=== PATIENT | female | born 1995 | race Caucasian/White ===

== ENCOUNTER 2022-08-23 19:31 | Observation (INO) | payer MEDICAID ==
[~2022-08-23] VITALS: Ht 162.6 cm; Wt 77.1 kg
[~2022-08-23 19:31] MED LIST: LOP2C PO
[2022-08-23] MEDS ORDERED: TERBUTALINE SULFATE 1 MG/ML 1ML VIAL SC ONE (20:21)
[2022-08-23] MEDS ORDERED: LACTATED RINGER'S 1,000 ML IV ONE (20:30)
[2022-08-23] MEDS ORDERED: LACTATED RINGER'S 1,000 ML IV SCH (20:30)
[2022-08-23] MEDS: TERBUTALINE SULFATE 1 MG/ML 1ML VIAL SC SCH ×3 (20:48→21:25)
[2022-08-23] MEDS ORDERED: NIFEdipine 10 MG CAP PO ONE (21:00)
[2022-08-23] MEDS ORDERED: BETAMETHASONE ACET (30mg/5ml) 5ml Vial 6mg/ml IM ONE (21:45)
[2022-08-23] MEDS ORDERED: NIF10C PO (21:52)
== END 2022-08-23 22:57 | disposition home or self-care (01) ==
LOC: LDRP 19:31
PROVIDERS: ADMIT Obstetrics & Gynecology; ATTEND Obstetrics & Gynecology
DX: O62.9 Abnormality of forces of labor, unspecified (principal); O26.853 Spotting complicating pregnancy, third trimester; Z3A.34 34 weeks gestation of pregnancy
CPT/HCPCS: 59025; 81002; 94760; 96360; 96361; 96372; G0378; J0702; J3105

== ENCOUNTER 2022-08-24 22:10 | Observation (INO) | payer MEDICAID ==
[~2022-08-24] VITALS: Ht 162.6 cm; Wt 77.1 kg
[~2022-08-24 22:10] MED LIST changes: +NIF10C PO
[2022-08-24] MEDS ORDERED: BETAMETHASONE ACET (30mg/5ml) 5ml Vial 6mg/ml IM ONE (22:30)
== END 2022-08-24 23:23 | disposition home or self-care (01) ==
LOC: LDRP 22:10
PROVIDERS: ADMIT Obstetrics & Gynecology; ATTEND Obstetrics & Gynecology
DX: O60.03 Preterm labor without delivery, third trimester (principal); Z3A.35 35 weeks gestation of pregnancy
CPT/HCPCS: 59025; 81002; 96372; G0378

== ENCOUNTER 2022-09-06 19:46 | Observation (INO) | payer MEDICAID ==
[2022-09-06] MEDS ORDERED: PREN-96 PO (20:32)
== END 2022-09-06 20:43 | disposition home or self-care (01) ==
LOC: LDRP 19:46
PROVIDERS: ADMIT Obstetrics & Gynecology; ATTEND Obstetrics & Gynecology
DX: O40.3XX0 Polyhydramnios, third trimester, not applicable or unspecified (principal); O60.03 Preterm labor without delivery, third trimester; Z3A.36 36 weeks gestation of pregnancy
CPT/HCPCS: 59025; 81002; 94760; G0378

== ENCOUNTER 2022-09-08 21:00 | Observation (INO) | payer MEDICAID ==
[~2022-09-08 21:00] MED LIST changes: -LOP2C PO; +PREN-96 PO
[2022-09-08] MEDS ORDERED: NIFEdipine 10 MG CAP PO ONE (21:30)
== END 2022-09-08 22:20 | disposition home or self-care (01) ==
LOC: LDRP 21:00
PROVIDERS: ADMIT Obstetrics & Gynecology; ATTEND Obstetrics & Gynecology
DX: O40.3XX0 Polyhydramnios, third trimester, not applicable or unspecified (principal); O62.9 Abnormality of forces of labor, unspecified; O99.891 Other specified diseases and conditions complicating pregnancy; M54.9 Dorsalgia, unspecified; Z3A.37 37 weeks gestation of pregnancy
CPT/HCPCS: 59025; 76818; 81002; G0378

== ENCOUNTER 2022-09-12 19:40 | Observation (INO) | payer MEDICAID ==
[~2022-09-12] VITALS: Ht 162.6 cm; Wt 78.0 kg
== END 2022-09-12 22:20 | disposition home or self-care (01) ==
LOC: LDRP 19:40
PROVIDERS: ADMIT Obstetrics & Gynecology; ATTEND Obstetrics & Gynecology
DX: O40.3XX0 Polyhydramnios, third trimester, not applicable or unspecified (principal); O62.9 Abnormality of forces of labor, unspecified; Z3A.37 37 weeks gestation of pregnancy
CPT/HCPCS: 59025; 76818; 81002; 94760; G0378

== ENCOUNTER 2022-09-15 19:16 | Observation (INO) | payer MEDICAID | END 2022-09-15 20:58 | disposition home or self-care (01) | LOC: LDRP 19:16 | PROVIDERS: ADMIT Obstetrics & Gynecology; ATTEND Obstetrics & Gynecology | DX: O40.3XX0 Polyhydramnios, third trimester, not applicable or unspecified (principal); O62.9 Abnormality of forces of labor, unspecified; Z3A.38 38 weeks gestation of pregnancy | CPT/HCPCS: 59025; 76818; 81002; G0378 ==

== ENCOUNTER 2022-09-18 19:36 | Observation (INO) | payer MEDICAID | END 2022-09-18 21:18 | disposition home or self-care (01) | LOC: LDRP 19:36 | PROVIDERS: ADMIT Obstetrics & Gynecology; ATTEND Obstetrics & Gynecology | DX: O40.3XX0 Polyhydramnios, third trimester, not applicable or unspecified (principal); Z3A.38 38 weeks gestation of pregnancy | CPT/HCPCS: 59025; 76818; 81002; 94760; G0378 ==

== ENCOUNTER 2022-09-21 19:06 | Observation (INO) | payer MEDICAID ==
[~2022-09-21] VITALS: Ht 162.6 cm; Wt 78.0 kg
[~2022-09-21 19:06] MED LIST changes: -NIF10C PO
== END 2022-09-21 20:27 | disposition home or self-care (01) ==
LOC: LDRP 19:06
PROVIDERS: ADMIT Obstetrics & Gynecology; ATTEND Obstetrics & Gynecology
DX: O40.3XX0 Polyhydramnios, third trimester, not applicable or unspecified (principal); Z3A.39 39 weeks gestation of pregnancy
CPT/HCPCS: 59025; 76818; 81002; 94760; G0378

== ENCOUNTER 2022-09-25 16:06 | Observation (INO) | payer MEDICAID ==
[2022-09-25] MEDS ORDERED: SODIUM CITR/CITRIC ACID ORAL SOLN 30 ML PO SCH (18:00)
== END 2022-09-25 17:51 | disposition home or self-care (01) ==
LOC: LDRP 16:06
PROVIDERS: ADMIT Obstetrics & Gynecology; ATTEND Obstetrics & Gynecology
DX: O40.3XX0 Polyhydramnios, third trimester, not applicable or unspecified (principal); Z3A.39 39 weeks gestation of pregnancy
CPT/HCPCS: 59025; 76818; 81002; 94760; G0378

== ENCOUNTER 2022-09-26 11:13 | Inpatient (IN) | payer MEDICAID ==
[~2022-09-26] VITALS: Ht 162.6 cm; Wt 81.2 kg
[2022-09-26] MEDS ORDERED: PROMETHAZINE HCL 25 MG/ML 1ML IV PRN (11:45)
[2022-09-26] MEDS ORDERED: DERMOPLAST 60ML BOTTLE TOP PRN (11:45)
[2022-09-26] MEDS ORDERED: PHISODERM TOP SOLN 240ML BTL TOP PRN (11:45)
[2022-09-26] MEDS ORDERED: miSOPROStol 50 MCG per PRE-CUT 1/2 TAB PO PRN (11:45)
[2022-09-26] MEDS ORDERED: WITCH HAZEL-GLYCERIN PAD TOP PRN (11:45)
[2022-09-26] MEDS ORDERED: BUTORPHANOL TARTRATE 2 MG/1 ML VIAL IV PRN ×2 (11:45)
[2022-09-26] MEDS ORDERED: LIDOCAINE 2%HCL (LOCAL ANESTH.) INJ 20ML MDV IJ PRN (11:45)
[2022-09-26 12:30] LABS: Basophils # (auto) 0 10 ^3/uL (0-0.2); Basophils % (auto) 0.2 % (0.0-2.0); Eosinophils # (auto) 0.1 10 ^3/uL (0-0.8); Eosinophils % (auto) 0.5 % (0.0-7.0); Hematocrit 40.1 % (36.0-46.0); Hemoglobin 13.5 g/dL (12.2-16.2); Lymphocytes # (auto) 1.8 10 ^3/uL (0.4-5.4); Lymphocytes % (auto) 14.8 % (10.0-50.0); Mean Corpuscular Hemoglobin 29.9 pg (28.0-32.0); Mean Corpuscular Hgb Conc. 33.8 g/dL (32.0-36.0); Mean Corpuscular Volume 88.5 fL (80.0-100.0); Monocytes # (auto) 0.8 10 ^3/uL (0-1.3); Monocytes % (auto) 6.4 % (0.0-12.0); Neutrophils # (auto) 9.7 10 ^3/uL (1.6-8.6); Neutrophils % (auto) 78.1 % (37.0-80.0); Nucleated Red Blood Cells % 0.1 %; Red Blood Cells 4.53 10^6/uL (4.0-5.20); Red Cell Distribution Width 13.5 % (11.8-14.3); White Blood Cell 12.4 10^3/uL (4.4-10.8)
[2022-09-26 12:41] LABS: INR 0.87 (0.9-1.15); Partial Thromboplastin Time 25.9 sec (24.6-33.4)
[2022-09-26 12:46] LABS: Albumin 2.6 g/dL (3.4-5.0); BUN/Creatinine Ratio 9.1; Bilirubin, Total 0.7 mg/dL (0.2-1.0); Calcium 8.3 mg/dL (8.5-10.1); Potassium 3.5 mmol/L (3.5-5.1); Total Protein 6.3 g/dL (6.4-8.2)
[2022-09-26] MEDS: LACTATED RINGER'S 1,000 ML IV SCH (13:01)
[2022-09-26 14:02] LABS: Urine Bacteria FEW /hpf (None Seen); Urine Blood Negative /uL (Negative); Urine Specific Gravity 1.005 (1.001-1.035); Urine WBC <1 /hpf (0 - 5)
[2022-09-26 14:09] LABS: Alcohol, Urine < 3.0 mg/dL (0-10); Amphetamine Screen, Urine NEGATIVE (NEGATIVE); Barbiturate Scree,Urine NEGATIVE (NEGATIVE); Benzodiazephine Screen, Urine NEGATIVE (NEGATIVE); Cannabinoid Screen, Urine NEGATIVE (NEGATIVE); Cocaine Screen, Urine NEGATIVE (NEGATIVE); Opiate Scree,Urine NEGATIVE (NEGATIVE); Phencyclidine Screen, Urine NEGATIVE (NEGATIVE)
[2022-09-26] MEDS ORDERED: ONDANSETRON HCL 4 MG/2 ML VIAL IV PRN (14:30)
[2022-09-26] MEDS ORDERED: METHYLERGONOVINE MALEATE 0.2 MG/ML AMP IM PRN (14:30)
[2022-09-26] MEDS ORDERED: LACT. RINGER'S W OXYTOCIN 20UNITS/1000 ML IV PRN (14:30)
[2022-09-26] MEDS ORDERED: diphenhdrAMINE HCL 50 MG/1 ML VL IV PRN (14:30)
[2022-09-26] MEDS ORDERED: miSOPROStol 100 mcg TAB SL PRN (14:30)
[2022-09-26] MEDS ORDERED: ACETAMINOPHEN 325 MG TAB PO PRN (14:30)
[2022-09-26] MEDS ORDERED: OXYTOCIN 10UNIT/ML 1ML VIAL IM PRN (14:30)
[2022-09-26] MEDS ORDERED: CARBOPROST TROMETHAMINE 250 MCG/1ML VIAL IM PRN (14:30)
[2022-09-26] MEDS ORDERED: TRANEXAMIC ACID 1,000 MG in SODIUM CHL 0.9% 100 ML IV PRN (14:30)
[2022-09-26] MEDS ORDERED: LACT. RINGERS/OXYTOCIN 20UNITS 500 ML IV ONE ×2 (16:30→17:00)
[2022-09-26] MEDS ORDERED: IBUPROFEN 800 MG TAB PO PRN (16:30)
[2022-09-26] MEDS ORDERED: fentaNYL CITRATE 100 MCG/2 ML VL IV ONE (20:30)
[2022-09-26] MEDS ORDERED: TERBUTALINE SULFATE 1 MG/ML 1ML VIAL SC PRN (20:30)
[2022-09-26] MEDS ORDERED: LACT. RINGERS/OXYTOCIN 20UNITS 1,000 ML IV SCH (22:00)
[2022-09-26] MEDS ORDERED: DIPHENOXYLATE W/ATROPINE 2.5 MG TAB PO PRN (22:00)
[2022-09-26] MEDS ORDERED: DIPHENOXYLATE W/ATROPINE 2.5 MG TAB PO SCH (22:00)
[2022-09-26] MEDS ORDERED: ROPIVACAINE HCL 200 ML EPI SCH (23:00)
[2022-09-26] MEDS ORDERED: ePHEDrine SULFATE 50 MG/ML AMP IV ONE (23:00)
[2022-09-26] MEDS ORDERED: LACTATED RINGER'S 1,000 ML IV ONE (23:00)
[2022-09-27] MEDS: LACTATED RINGER'S 1,000 ML IV SCH (01:19)
[2022-09-27] MEDS ORDERED: LACT. RINGERS/OXYTOCIN 20UNITS 1,000 ML IV SCH (05:15)
[2022-09-27 08:06] LABS: RPR Non Reactive (Non Reactive)
[2022-09-27 11:05] VITALS: BP 119/85
[2022-09-27] MEDS ORDERED: ACETAMINOPHEN/CODEINE#3 (300/30mg) TAB PO ONE (12:45)
[2022-09-27 15:15] VITALS: BP 132/77
[2022-09-27 19:00] VITALS: BP 133/85
[2022-09-27] MEDS ORDERED: ONDANSETRON ODT 4 MG TAB PO PRN (20:45)
[2022-09-27] MEDS ORDERED: IBUPROFEN 600 MG TAB PO PRN (20:45)
[2022-09-27] MEDS ORDERED: ACETAMINOPHEN 325 MG TAB PO PRN (20:45)
[2022-09-27] MEDS ORDERED: DOCUSATE SOD 100 MG CAP PO SCH (22:00)
[2022-09-27 23:00] VITALS: BP 123/85
[2022-09-28] MEDS ORDERED: DOCU100C10 PO (01:05)
[2022-09-28] MEDS ORDERED: PREN-96 PO (01:05)
[2022-09-28] MEDS ORDERED: ACET325T10 PO (01:05)
[2022-09-28] MEDS ORDERED: IBU600T PO (01:05)
[2022-09-28 06:17] LABS: Basophils # (auto) 0 10 ^3/uL (0-0.2); Basophils % (auto) 0.3 % (0.0-2.0); Eosinophils # (auto) 0.1 10 ^3/uL (0-0.8); Eosinophils % (auto) 1.1 % (0.0-7.0); Hematocrit 35.6 % (36.0-46.0); Hemoglobin 12.4 g/dL (12.2-16.2); Lymphocytes # (auto) 2.3 10 ^3/uL (0.4-5.4); Lymphocytes % (auto) 20.6 % (10.0-50.0); Mean Corpuscular Hemoglobin 30.8 pg (28.0-32.0); Mean Corpuscular Volume 88.2 fL (80.0-100.0); Monocytes # (auto) 0.8 10 ^3/uL (0-1.3); Monocytes % (auto) 7.2 % (0.0-12.0); Neutrophils # (auto) 7.8 10 ^3/uL (1.6-8.6); Neutrophils % (auto) 70.8 % (37.0-80.0); Nucleated Red Blood Cells % 0.1 %; Red Blood Cells 4.04 10^6/uL (4.0-5.20); Red Cell Distribution Width 13.4 % (11.8-14.3)
[2022-09-28 07:20] VITALS: BP 123/78
== END 2022-09-28 12:10 | disposition home or self-care (01) | DRG 560 ==
LOC: LDRP 11:13 → UNDOADMIN 11:13 → LDRP 12:45
PROVIDERS: ADMIT Obstetrics & Gynecology; ATTEND Obstetrics & Gynecology
PROC: 10E0XZZ Delivery of Products of Conception, External Approach (ICD-10-PCS; principal; 2022-09-27)
PROC: 3E0P7VZ Introduction of Hormone into Female Reproductive, Via Natural or Artificial Opening (ICD-10-PCS; 2022-09-27)
PROC: 3E0R3BZ Introduction of Anesthetic Agent into Spinal Canal, Percutaneous Approach (ICD-10-PCS; 2022-09-27)
PROC: 00HU33Z Insertion of Infusion Device into Spinal Canal, Percutaneous Approach (ICD-10-PCS; 2022-09-27)
PROC: 10907ZC Drainage of Amniotic Fluid, Therapeutic from Products of Conception, Via Natural or Artificial Opening (ICD-10-PCS; 2022-09-27)
PROC: 3E033VJ Introduction of Other Hormone into Peripheral Vein, Percutaneous Approach (ICD-10-PCS; 2022-09-27)
PROC: 0HQ9XZZ Repair Perineum Skin, External Approach (ICD-10-PCS; 2022-09-27)
DX: O69.1XX0 Labor and delivery complicated by cord around neck, with compression, not applicable or unspecified (principal); Z37.0 Single live birth; O40.3XX0 Polyhydramnios, third trimester, not applicable or unspecified; O70.0 First degree perineal laceration during delivery; Z20.822 Contact with and (suspected) exposure to COVID-19; Z3A.39 39 weeks gestation of pregnancy
CPT/HCPCS: 36415; 59025; 59409; 62282; 80053; 80307; 81001; 85025; 85610; 85730; 86592; 86850; 86900; 86901; 87426; 94760; 96360; 96361; 96365; 96366; 96372; G0378; J2590